=== PATIENT | female | born 1980 | race Two or more races ===

== ENCOUNTER → 2024-08-09 | Outpatient (CLI) | payer MEDICAID ==
[~2024-08-09] MED LIST: BUPIVACAINE HCL 0.25% P/F 10 ML VIAL ONE; IOHEXOL 300 MG/ML 100ML BOTTLE IJ ONE; LIDOCAINE 2%HCL (LOCAL ANESTH.) INJ 10ml MDV ONE; methylPREDNISolone ACETATE 80 MG/ML VL ONE
--- NOTE | 2024-08-09 10:39 | DVH ---
PROCEDURE: Right Shoulder Steroid Injection HISTORY: 44 Female pain DOCUMENTATION: Informed consent was obtained and a procedural time out was performed. Technique: Following adequate sterile preparation with chloroprep solution and local anesthesia using 1% lidocai ne, a 22-gauge needle was introduced into the RIGHT shoulder joint using intermittent fluoroscopic g uidance. Intra-articular location of the needle tip was confirmed with a small amount of Omnipaque co ntrast. Subsequently 80 mg of Depo-Medrol and 6 cc of 1% bupivacaine were injected slowly into the joint space. No immediate complications were seen. FINDINGS: There is contrast opacification of the joint capsule. There is washout of contrast upon Anthony roid injection. Impression: Uneventful RIGHT shoulder injection with Depo-Medrol and bupivacaine as described above.
--- NOTE | 2024-08-09 11:47 | DVH ---
Exam:Right Shoulder Steroid InjectionTechnique:Following adequate sterile preparation with chloroprep solution and local anesthesia using 1% lidocaine, a 22-gauge needle was introduced into the RIGHT sh oulder joint using intermittent fluoroscopic guidance. Intra-articular location of the needle tip was confirmed with a small amount of Omnipaque contrast. Subsequently 80 mg of Depo-Medrol and 6 cc of 1 % bupivacaine were injected slowly into the joint space. No immediate complications were seen.Clinica l History:44 Female pain DOCUMENTATION: Informed consent was obtained and a procedural time out was performed.Findings:There is contrast opacification of the joint capsule. There is washout of contras t upon Steroid injection.Impression:Uneventful RIGHT shoulder injection with Depo-Medrol and bupivaca ine as described above.
== END | disposition home or self-care (01) ==
LOC: XYW 09:43
PROVIDERS: ATTEND Orthopaedic Surgery Adult Reconstructive Orthopaedic Surgery
DX: M25.511 Pain in right shoulder (principal)
CPT/HCPCS: 20610; 77002; J1010; J2003; J3490; Q9967; 73020